=== PATIENT | female | born 1980 ===

== ENCOUNTER 2018-08-19 20:46 | Emergency (ER) | payer BC ==
[2018-08-19 21:01] VITALS: BP 106/76; PULSE 78; TEMP 98; O2SAT 99
[2018-08-19] MEDS ORDERED: Acetaminophen-Codeine 300/30 mg Tab PO STA (21:23)
[2018-08-19] MEDS ORDERED: Acetaminophen-Codeine 300/30 mg Tab PO ONE (21:31)
[2018-08-19 21:40] VITALS: RESP 20
--- NOTE | 2018-08-19 22:13 | C.PDOC ---
History Of Present Illness 37 year old female presents to the ER with a complaint of left lower dental pain. Patient was seen by oral surgeon and is scheduled for an extraction on 08/27/17, she has been taking 800mg motrin but states it no longer helps and is requesting something for the pain. Denies fever, trauma, or facial swelling. Time Seen by Provider: 08/19/18 21:01 Chief Complaint (Nursing): Dental Pain History Per: Patient History/Exam Limitations: no limitations Onset/Duration Of Symptoms: Days Current Symptoms Are (Timing): Still Present Recent travel outside of the [place]: No Past Medical History Reviewed: Historical Data, Nursing Documentation, Vital Signs Vital Signs: Last Vital Signs Temp 98 F 08/19/18 20:57 Pulse 78 08/19/18 20:57 Resp 20 08/19/18 21:39 BP 106/76 08/19/18 20:57 Pulse Ox 99 08/19/18 20:57 - Medical History PMH: Hypothyroidism Surgical History: Back Surgery (right knee) Family History: States: Unknown Family Hx - Social History Hx Alcohol Use: No Hx Substance Use: No Review Of Systems Constitutional: Negative for: Fever, Chills ENT: Positive for: Mouth Pain Musculoskeletal: Negative for: Other (Facial swelling) Physical Exam - Physical Exam Appears: Non-toxic, No Acute Distress Skin: Normal Color, Warm, Dry Head: Atraumatic, Normacephalic, No Swelling (Facial) Eye(s): bilateral: Normal Inspection Ear(s): Bilateral: Normal Nose: Normal Oral Mucosa: Moist Tongue: Normal Appearing, No Swelling Lips: Normal Appearing, No Swelling Teeth: Tender To Palpation (Left lower posterior molar) Gingiva: Normal Appearing, No Erythema, No Swelling, Tender (left posterior lower molar) Throat: Normal, No Other (Swelling) Neck: Normal, Supple, No Other (Swelling) Neurological/Psych: Oriented x3, Normal Speech ED Course And Treatment O2 Sat by Pulse Oximetry: 99 (Room air) Pulse Ox Interpretation: Normal Progress Note: Tylenol with codeine administered. Patient reports improvement of pain, she is resting comfortably in the ER in no acute distress, vitals are stable, will discharge home with Rx and instructions to follow up with oral surgeon as scheduled. 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 - Scribe Statement The provider has reviewed the documentation as recorded by the Scribe Helio Alegria All medical record entries made by the Jersonibtanmay were at my direction and personally dictated by me. I have reviewed the chart and agree that the record accurately reflects my personal performance of the history, physical exam, medical decision making, and the department course for this patient. I have also personally directed, reviewed, and agree with the discharge instructions and disposition.
== END 2018-08-19 21:39 | disposition home or self-care (01) ==
LOC: C.ER 20:46
DX: K01.1 Impacted teeth (principal); K08.89 Other specified disorders of teeth and supporting structures